=== PATIENT | male | born 1990 | race Caucasian/White ===

== ENCOUNTER 2016-07-24 03:30 | Emergency (ER) | payer OTHER ==
[~2016-07-24] VITALS: Ht 170.2 cm; Wt 81.8 kg
[2016-07-24] MEDS ORDERED: ALBU8HFA IH (03:33)
[2016-07-24] MEDS ORDERED: LIDOCAINE HCL BUFFERED 1% W/EPI 1:100,000 20 ML VIAL INJ ONE (04:45)
[2016-07-24 05:34] VITALS: BP 110/78
== END 2016-07-24 05:35 | disposition home or self-care (01) ==
LOC: EMS 03:31
DX: S61.512A Laceration without foreign body of left wrist, initial encounter (principal); J45.909 Unspecified asthma, uncomplicated; F12.90 Cannabis use, unspecified, uncomplicated; W17.89XA Other fall from one level to another, initial encounter; Y93.89 Activity, other specified; Y92.89 Other specified places as the place of occurrence of the external cause; Y99.8 Other external cause status
CPT/HCPCS: 12002; 73130; 99284; J3490

== ENCOUNTER 2016-08-05 12:19 | Emergency (ER) | payer OTHER ==
[~2016-08-05] VITALS: Ht 170.2 cm; Wt 80.9 kg
[~2016-08-05 12:19] MED LIST: ALBU8HFA IH
[2016-08-05 12:57] LABS: GLUCOSE,POINT OF CARE 75 MG/DL (70-110)
[2016-08-05] MEDS ORDERED: CEPH500 PO (13:11)
[2016-08-05 15:33] VITALS: BP 122/58
== END 2016-08-05 15:34 | disposition home or self-care (01) ==
LOC: EMS 12:21
DX: Z48.01 Encounter for change or removal of surgical wound dressing (principal); J45.909 Unspecified asthma, uncomplicated; F12.90 Cannabis use, unspecified, uncomplicated
CPT/HCPCS: 82962; 99282